=== PATIENT | female | born 1985 | race Caucasian/White ===

== ENCOUNTER 2021-06-08 13:52 | Emergency (ER) | payer OTHER ==
[2021-06-08 14:42] LABS: BILIRUBIN NEGATIVE (NEGATIVE); BLOOD 1+ Ery/uL (NEGATIVE); CLARITY CLEAR (CLEAR); COLOR YELLOW (YELLOW); GLUCOSE (U) NORMAL (NORMAL); LEUKOCYTES NEGATIVE Leu/uL (NEGATIVE); NITRITE NEGATIVE (NEGATIVE); PROTEIN NEGATIVE (NEGATIVE); SPECIFIC GRAVITY 1.025 (1.001-1.030); UROBILINOGEN 0.2 mg/dL (0.2-1.0)
[2021-06-08 14:42] LABS: BASOPHIL 0.1 % (0-2); EOSINOPHIL 0 % (0-5); HCT 37.2 % (37.0-47.0); HGB 11.8 g/dl (12.5-16.0); LYMPHOCYTE 16.7 % (15-48); MCH 25.8 pg (25.0-31.0); MCHC 31.7 g/dL (32.0-36.0); MCV 81.4 fL (78.0-100.0); MONOCYTE 9.5 % (0-12); MPV 10.3 fL (6.0-9.5); NEUTROPHIL 73.3 % (41-80); NRBC 0; PLT 368 K/uL (150-400); RBC 4.57 M/uL (4.20-5.40); RDW 14.1 % (11.5-14.0); WBC 11.1 K/uL (4.0-10.5)
[2021-06-08 14:57] LABS: BACTERIA 1+; MUCOUS MODERATE
[2021-06-08 15:01] LABS: BUN/CREAT RATIO (CALC) 15.5 RATIO; CREATININE 0.84 mg/dL (0.51-0.95); POTASSIUM 3.5 mmol/L (3.5-5.1)
[2021-06-08] MEDS ORDERED: IBUPROFEN800 MG PO (16:10)
== END 2021-06-08 16:34 | disposition home or self-care (01) ==
LOC: FER 13:52
PROVIDERS: Nurse Practitioner Family
DX: N83.202 Unspecified ovarian cyst, left side (principal); J45.909 Unspecified asthma, uncomplicated
CPT/HCPCS: 36415; 80048; 81001; 85025; J1885; J2405; J7030

== ENCOUNTER 2021-11-08 19:37 | Emergency (ER) | payer OTHER ==
[~2021-11-08 19:37] MED LIST: IBUPROFEN800 MG PO
== END 2021-11-08 21:45 | disposition home or self-care (01) ==
LOC: FER 19:37
DX: S60.211A Contusion of right wrist, initial encounter (principal); W22.8XXA Striking against or struck by other objects, initial encounter; Y92.009 Unspecified place in unspecified non-institutional (private) residence as the place of occurrence of the external cause
CPT/HCPCS: 73110